=== PATIENT | male | born 1955 | race Caucasian/White ===

== ENCOUNTER 2020-03-21 12:06 | Outpatient (CLI) | payer OTHER ==
[2020-03-21 15:01] LABS: BASOPHILS # (AUTO) 0.1 10^3/uL (0.0-0.1); BASOPHILS % (AUTO) 0.9 %; EOSINOPHILS # (AUTO) 0.1 10^3/uL (0.0-0.7); EOSINOPHILS % (AUTO) 0.9 %; HGB - HEMOGLOBIN 15.1 g/dL (14.0-18.0); LYMPHOCYTES # (AUTO) 1.6 10^3/uL (1.5-3.5); LYMPHOCYTES % (AUTO) 25.1 %; MEAN CORPUSCULAR HEMOGLOBIN 30.3 pg (27.0-31.0); MEAN CORPUSCULAR HGB CONC 33.2 g/dL (32.0-36.0); MEAN CORPUSCULAR VOLUME 91.2 fL (80.0-94.0); MEAN PLATELET VOLUME 10.7 fL (7.4-11.4); MONOCYTES # (AUTO) 0.5 10^3/uL (0.0-1.0); MONOCYTES % (AUTO) 7.5 %; NEUTROPHILS # (AUTO) 4.2 10^3/uL (1.5-6.6); NEUTROPHILS % (AUTO) 65.3 %; PLT - PLATELET COUNT 189 10^3/uL (130-450); RED BLOOD COUNT 4.99 10^6/uL (4.70-6.10); RED CELL DISTRIBUTION WIDTH 13.5 % (12.0-15.0); WHITE BLOOD COUNT 6.4 x10^3/uL (4.8-10.8)
[2020-03-21 15:18] LABS: ALBUMIN 4.2 g/dL (3.2-5.5); ALBUMIN/GLOBULIN RATIO 1.5 (1.0-2.2); ALKALINE PHOSPHATASE 61 IU/L (42-121); ALT ALANINE AMINOTRANSFERASE 22 IU/L (10-60); AST ASPARTATE AMINOTRANSFERASE 23 IU/L (10-42); BILIRUBIN,TOTAL 1.3 mg/dL (0.2-1.0); BUN - BLOOD UREA NITROGEN 16 mg/dL (6-20); CARBON DIOXIDE - CO2 29 mmol/L (21-32); CHLORIDE 106 mmol/L (101-111); CHOL/HDL RATIO 3.9 (<5.0); CHOLESTEROL 174 mg/dL; GLUCOSE 98 mg/dL (70-100); HDL CHOLESTEROL 45 mg/dL; LDL CHOLESTEROL,CALCULATED 100 mg/dL; LDL/HDL RATIO 2.2 (<3.6); SODIUM 140 mmol/L (135-145); VLDL CHOLESTEROL 29 mg/dL
== END 2020-03-21 12:07 | disposition home or self-care (01) ==
LOC: LAB.S 12:06
PROVIDERS: ATTEND Registered Nurse
DX: Z12.5 Encounter for screening for malignant neoplasm of prostate (principal); Z13.228 Encounter for screening for other metabolic disorders; Z13.0 Encounter for screening for diseases of the blood and blood-forming organs and certain disorders involving the immune mechanism; Z13.29 Encounter for screening for other suspected endocrine disorder
CPT/HCPCS: 36415; 80053; 80061; 83721; 84153; 84443; 85025

== ENCOUNTER 2020-05-17 10:27 | Outpatient (CLI) | payer MEDICARE, OTHER ==
--- NOTE | 2020-05-17 12:27 | XRAY Report ---
PROCEDURE: Lumbar Spine 2 View INDICATIONS: LOW BACK PAIN TECHNIQUE: 2 views of the lumbar spine were acquired. COMPARISON: None. FINDINGS: Bones: 5 [id number] vertebrae are present. There is normal bony alignment. No vertebral body compression fractures. No suspicious bony lesions. Mild multilevel degenerative disc space loss. Pr ominent facet arthropathy involving L4-L5 and L5-S1. Soft tissues: Overlying bowel gas pattern is normal. No suspicious soft tissue calcifications. IMPRESSION: Prominent lower lumbar facet arthropathy. No evidence acute bony abnormality of the lumb ar spine. Reviewed by: Brandon Taylor MD on 05/17/2020 12:26 PM PDT Approved by: Brandon Taylor MD on 05/17/2020 12:26 PM PDT Station ID: [id number]
--- NOTE | 2020-05-17 12:28 | XRAY Report ---
PROCEDURE: Hip w/Pelvis 2-3V LT INDICATIONS: LOW BACK PAIN TECHNIQUE: AP pelvis with lateral view(s) of the left hip(s). COMPARISON: None. FINDINGS: Bones: No fractures or dislocations. Pelvic ring appears intact. No suspicious bony lesions. Adva nced degenerative arthritis of the left hip with large osteophytes and joint space obliteration. Mode rate to severe degenerative arthritis of the right hip. Soft tissues: The visualized bowel gas pattern is normal. No suspicious soft tissue calcifications. IMPRESSION: 1. Advanced degenerative arthritis of the left hip. 2. Moderate to severe degenerative arthritis of the right hip. Reviewed by: Brandon Taylor MD on 05/17/2020 12:27 PM PDT Approved by: Brandon Taylor MD on 05/17/2020 12:27 PM PDT Station ID: [id number]
== END 2020-05-17 10:28 | disposition home or self-care (01) ==
LOC: DI.S 10:27
PROVIDERS: ATTEND Orthopaedic Surgery
DX: M47.816 Spondylosis without myelopathy or radiculopathy, lumbar region (principal); M16.0 Bilateral primary osteoarthritis of hip
CPT/HCPCS: 72100

== ENCOUNTER 2020-09-11 12:07 | Outpatient (CLI) | payer MEDICARE, OTHER ==
[2020-09-11 15:06] LABS: BUN - BLOOD UREA NITROGEN 15 mg/dL (6-20); CALCIUM 9.2 mg/dL (8.5-10.3); CARBON DIOXIDE - CO2 27 mmol/L (21-32); CHLORIDE 105 mmol/L (101-111); CHOL/HDL RATIO 4.2 (<5.0); CHOLESTEROL 229 mg/dL; GLUCOSE 98 mg/dL (70-100); HDL CHOLESTEROL 54 mg/dL; LDL CHOLESTEROL,CALCULATED 153 mg/dL; LDL/HDL RATIO 2.8 (<3.6); SODIUM 140 mmol/L (135-145); VLDL CHOLESTEROL 22 mg/dL
== END 2020-09-11 12:08 | disposition home or self-care (01) ==
LOC: LAB.S 12:07
PROVIDERS: ATTEND Registered Nurse
DX: E78.5 Hyperlipidemia, unspecified (principal); Z79.899 Other long term (current) drug therapy
CPT/HCPCS: 36415; 80048; 80061; 83721

== ENCOUNTER 2020-09-23 10:40 | Outpatient (CLI) | payer MEDICARE, OTHER ==
[2020-09-23 20:40] LABS: HEMOGLOBIN A1c% 5.5 % (4.27-6.07)
== END 2020-09-23 10:41 | disposition home or self-care (01) ==
LOC: LAB.S 10:40
PROVIDERS: ATTEND Registered Nurse
DX: R73.9 Hyperglycemia, unspecified (principal)
CPT/HCPCS: 36415; 83036

== ENCOUNTER 2021-03-25 08:42 | Emergency (ER) | payer MEDICARE, OTHER ==
--- NOTE | 2021-03-25 10:11 | XRAY Report ---
PROCEDURE: Ribs w/PA Chest RT INDICATIONS: fall from horse, R ribs hurting TECHNIQUE: 2 views of the right ribs were acquired, along with a single view chest. COMPARISON: None. FINDINGS: Surgical changes and devices: None. Bones and chest wall: No dislocations. There is a vertically oriented fracture with slight offset o f the cortex seen just below the surface marker indicating area of maximal tenderness on the frontal view chest. No suspicious bony lesions. Overlying soft tissues appear unremarkable. Lungs and pleura: No pleural effusions or pneumothorax. Lungs appear clear. Mediastinum: Mediastinal contours appear normal. Heart size is normal. IMPRESSION: No pneumothorax found. Vertically oriented rib fracture involving the right lateral ninth rib. No pul monary contusion seen. Reviewed by: Dickson Kendall MD on 03/25/2021 10:10 AM PDT Approved by: Dickson Kendall MD on 03/25/2021 10:10 AM PDT Station ID: [id number]
--- NOTE | 2021-03-25 10:13 | XRAY Report ---
PROCEDURE: Knee 3 View LT INDICATIONS: fall from horse, pain, swelling TECHNIQUE: 3 views of the left knee(s) were acquired. COMPARISON: None. FINDINGS: Bones: No fractures or dislocations. No suspicious bony lesions. Soft tissues: No joint effusion. No suspicious soft tissue calcifications. IMPRESSION: No trauma found. Reviewed by: Dickson Kendall MD on 03/25/2021 10:11 AM PDT Approved by: Dickson Kendall MD on 03/25/2021 10:11 AM PDT Station ID: [id number]
--- NOTE | 2021-03-25 10:14 | XRAY Report ---
PROCEDURE: Lumbar Spine 2 View INDICATIONS: fall from horse, pain low spine TECHNIQUE: 2 views of the lumbar spine were acquired. COMPARISON: None. FINDINGS: Bones: 5 [id number] vertebrae are present. There is normal bony alignment. No vertebral body compression fractures. No suspicious bony lesions. Soft tissues: Overlying bowel gas pattern is normal. No suspicious soft tissue calcifications. IMPRESSION: Degenerative disc disease is mild along the thoracolumbar junction and lumbosacral spine . No fracture or traumatic subluxation is found. Moderate facet osteoarthritis is seen at L4-5 and L5 -S1. Slight convex leftward scoliosis centered at L4. Reviewed by: Dickson Kendall MD on 03/25/2021 10:12 AM PDT Approved by: Dickson Kendall MD on 03/25/2021 10:12 AM PDT Station ID: [id number]
[2021-03-25] MEDS ORDERED: HYDROcod/ACETAM 5/325 MG TABLET PO STA (11:37)
[2021-03-25] MEDS ORDERED: KETOROLAC 60 MG/2 ML VIAL IM STA (11:37)
--- NOTE | 2021-03-25 11:40 | ED Physician Documentation ---
History of Present Illness - Stated complaint Stated Complaint: BODY ACHES - Chief complaint Chief Complaint: Trauma Ch/Bk - History obtained from History obtained from: Patient, Family - Additonal information Additional information: Patient comes emergency department chief complaint of back pain and left knee pain after falling off her horse 3 days ago. Patient states it was his horse and that he was bucked off onto sand. He states he twisted his he fell and landed on his right back. Patient denies any loss of consciousness so he thinks he might of bumped his head at the time. No neck pain. No abdominal pain. No blood in stool or urine. No difficulty breathing other than it hurts to take a deep breath. No other complaints at this time. Review of Systems Ten Systems: 10 systems reviewed and negative Constitutional: reports: Reviewed and negative Eyes: reports: Reviewed and negative Ears: reports: Reviewed and negative Nose: reports: Reviewed and negative Throat: reports: Reviewed and negative Cardiac: reports: Reviewed and negative Respiratory: reports: Reviewed and negative GI: reports: Reviewed and negative : reports: Reviewed and negative Skin: reports: Reviewed and negative Musculoskeletal: reports: Back pain, Joint pain Neurologic: reports: Reviewed and negative Psychiatric: reports: Reviewed and negative Endocrine: reports: Reviewed and negative Immunocompromised: reports: Reviewed and negative PD PAST MEDICAL HISTORY - Past Medical History Past Medical History: Yes Musculoskeletal: Osteoarthritis - Past Surgical History Past Surgical History: No - Present Medications Home Medications: Ambulatory Orders Medication Instructions Recorded Confirmed Cetirizine HCl [Zyrtec] 10 mg PO DAILY 03/25/21 03/25/21 Fluticasone [Flonase] 1 sprays EMILIANO DAILY 03/25/21 03/25/21 HYDROcod/ACETAM 5/325 [[place] 5/325] 1 - 2 tablet PO Q6H PRN #20 tablet 03/25/21 Meloxicam [Mobic] 1 tablet PO DAILY 03/25/21 03/25/21 - Allergies Allergies/Adverse Reactions: Allergies Allergy/AdvReac Type Severity Reaction Status Date / Time No Known Drug Allergies Allergy Verified 03/25/21 08:56 - Social History Does the pt smoke?: No Smoking Status: Never smoker Does the pt drink ETOH?: Yes Does the pt have substance abuse?: No - Immunizations Immunizations are current?: Yes PD ED PE NORMAL - Vitals Vital signs reviewed: Yes - General General: Alert and oriented X 3, No acute distress, Well developed/nourished - HEENT HEENT: Atraumatic, PERRL, EOMI, Moist mucous membranes - Neck Neck: Supple, no meningeal sign - Cardiac Cardiac: RRR, No murmur - Respiratory Respiratory: No respiratory distress, Clear bilaterally - Abdomen Abdomen: Soft, Non tender, Non distended - Back Back: No CVA TTP, No spinal TTP, Other (Tenderness palpation over lumbar area just to right of spine. Extends up to posterior right lower rib cage as well as into posterior lateral right ribs at approximately the 7 through 10 level. No palpable deformity no crepitus.) - Derm Derm: Warm and dry, No rash, Other (Large contusion noted over right buttock and flank, as well as posterior left knee. Tender to palpation in same area.) - Extremities Extremities: No deformity, No edema, No calf tenderness / cord - Neuro Neuro: Alert and oriented X 3, progress man 2-12 intact, No motor deficit, No sensory deficit, Normal speech - Psych Psych: Normal mood, Normal affect Results - Vitals Vitals: Vital Signs - 24 hr 03/25/21 08:57 Temperature 36.5 C Heart Rate 56 L Respiratory 18 Rate Blood Pressure 158/82 H O2 Saturation 99 Oxygen O2 Source Room air - Rads (name of study) lumbar XR Radiology: Final report received, EMP read indepedently, See rad report (nad, DJD, osteoarthritis) ribs/chest XR Radiology: Final report received, EMP read indepedently, See rad report (R single nondisplaced rib fx, no pneumo) L knee XR Radiology: Final report received, EMP read indepedently, See rad report (nad) PD MEDICAL DECISION MAKING - ED course Complexity details: reviewed results, re-evaluated patient, considered differential, d/w patient ED course: Patient was treated symptomatically in the emergency department. X-ray showed a right rib fracture without pneumothorax or displacement. Lumbar and left knee x-rays were negative. Patient was instructed regarding symptomatic management at home, and we have discussed the usual indications for return. Departure - Departure Disposition: 01 Home, Self Care Clinical Impression: Multiple contusions Rib fracture Qualifiers: Encounter type: initial encounter Rib fracture type: single rib Fracture type: closed Laterality: right Qualified Code(s): S22.31XA - Fracture of one rib, right side, initial encounter for closed fracture Knee strain Qualifiers: Encounter type: initial encounter Laterality: left Qualified Code(s): S86.912A - Strain of unspecified muscle(s) and tendon(s) at lower leg level, left leg, initial encounter Lumbar strain Qualifiers: Encounter type: initial encounter Qualified Code(s): S39.012A - Strain of muscle, fascia and tendon of lower back, initial encounter Fall from horse Qualifiers: Encounter type: initial encounter Qualified Code(s): V80.010A - Animal-rider injured by fall from or being thrown from horse in noncollision accident, initial encounter Condition: Stable Instructions: ED Low Back Pain Injury, ED Fx Rib, ED Contusion Lower Ext Prescriptions: HYDROcod/ACETAM 5/325 [[place] 5/325] 1 - 2 tablet PO Q6H PRN #20 tablet PRN Reason: Pain Comments: The x-rays of your low spine and your knee look good. Your rib X-ray series showed a single fracture of one of the right ribs. No evidence of injury to your lung was seen. Please take the pain medication as needed. Focus on taking several deep breaths every hour to keep your lungs well aerated and prevent pneumonia. You may follow-up with your doctor as needed.
[2021-03-25 11:56] VITALS: BP 144/92
== END 2021-03-25 12:15 | disposition home or self-care (01) ==
LOC: ED 08:42
DX: S22.31XA Fracture of one rib, right side, initial encounter for closed fracture (principal); S86.912A Strain of unspecified muscle(s) and tendon(s) at lower leg level, left leg, initial encounter; S39.012A Strain of muscle, fascia and tendon of lower back, initial encounter; S80.02XA Contusion of left knee, initial encounter; S30.0XXA Contusion of lower back and pelvis, initial encounter; V80.010A Animal-rider injured by fall from or being thrown from horse in noncollision accident, initial encounter; Y93.52 Activity, horseback riding; M51.37 Other intervertebral disc degeneration, lumbosacral region; M47.817 Spondylosis without myelopathy or radiculopathy, lumbosacral region
CPT/HCPCS: 71101; 72100; 73562; 96372; 99283; 99284; A9270

== ENCOUNTER 2021-06-30 12:22 | Outpatient (CLI) | payer MEDICARE, OTHER ==
--- NOTE | 2021-06-30 17:13 | XRAY Report ---
PROCEDURE: Hip w/Pelvis 1V LT INDICATIONS: L HIP PX TECHNIQUE: AP pelvis with lateral view(s) of the left hip(s). COMPARISON: None. FINDINGS: Bones: No fractures or dislocations. Pelvic ring appears intact. No suspicious bony lesions. Prog ressive end-stage degenerative change of the left hip. Right hip degenerative change. Soft tissues: The visualized bowel gas pattern is normal. No suspicious soft tissue calcifications. IMPRESSION: Progressive end-stage degenerative change of the left hip. Reviewed by: Brandon Taylor MD on 06/30/2021 5:12 PM PDT Approved by: Brandon Taylor MD on 06/30/2021 5:12 PM PDT Station ID: [id number]
== END 2021-06-30 12:23 ==
LOC: DI.N 12:22
PROVIDERS: ATTEND Orthopaedic Surgery
DX: M25.552 Pain in left hip (principal); M16.12 Unilateral primary osteoarthritis, left hip

== ENCOUNTER 2021-08-14 11:04 | Outpatient (CLI) | payer MEDICARE, OTHER ==
[2021-08-14 15:23] LABS: BASOPHILS # (AUTO) 0.1 10^3/uL (0.0-0.1); BASOPHILS % (AUTO) 1.1 %; EOSINOPHILS # (AUTO) 0.1 10^3/uL (0.0-0.7); EOSINOPHILS % (AUTO) 1.3 %; HCT - HEMATOCRIT 46.7 % (42.0-52.0); HGB - HEMOGLOBIN 15.1 g/dL (14.0-18.0); LYMPHOCYTES # (AUTO) 1.1 10^3/uL (1.5-3.5); LYMPHOCYTES % (AUTO) 19.3 %; MEAN CORPUSCULAR HEMOGLOBIN 29.8 pg (27.0-31.0); MEAN CORPUSCULAR HGB CONC 32.3 g/dL (32.0-36.0); MEAN CORPUSCULAR VOLUME 92.1 fL (80.0-94.0); MEAN PLATELET VOLUME 11.3 fL (7.4-11.4); MONOCYTES # (AUTO) 0.6 10^3/uL (0.0-1.0); MONOCYTES % (AUTO) 9.9 %; NEUTROPHILS # (AUTO) 3.8 10^3/uL (1.5-6.6); NEUTROPHILS % (AUTO) 68.2 %; PLT - PLATELET COUNT 200 10^3/uL (130-450); RED BLOOD COUNT 5.07 10^6/uL (4.70-6.10); RED CELL DISTRIBUTION WIDTH 13.2 % (12.0-15.0); WHITE BLOOD COUNT 5.5 x10^3/uL (4.8-10.8)
[2021-08-14 15:52] LABS: ALBUMIN 4.2 g/dL (3.2-5.5); ALBUMIN/GLOBULIN RATIO 1.4 (1.0-2.2); ALKALINE PHOSPHATASE 66 IU/L (42-121); ALT ALANINE AMINOTRANSFERASE 22 IU/L (10-60); AST ASPARTATE AMINOTRANSFERASE 21 IU/L (10-42); BILIRUBIN,TOTAL 1.1 mg/dL (0.2-1.0); BUN - BLOOD UREA NITROGEN 19 mg/dL (6-20); CARBON DIOXIDE - CO2 29 mmol/L (21-32); CHLORIDE 103 mmol/L (101-111); CHOL/HDL RATIO 3.9 (<5.0); CHOLESTEROL 221 mg/dL; CREATININE,URINE 280.4 mg/dL; GFR - MDRD 75 (>89); GLUCOSE 97 mg/dL (70-100); HDL CHOLESTEROL 56 mg/dL; LDL CHOLESTEROL,CALCULATED 148 mg/dL; LDL/HDL RATIO 2.6 (<3.6); MICROALBUM/CREATININE RATIO,UR 3.9 ug/mg (<30.0); MICROALBUMIN,URINE 1.1 mg/dL (0-300.0); POTASSIUM 4.7 mmol/L (3.5-5.0); SODIUM 139 mmol/L (135-145); TOTAL PROTEIN 7.1 g/dL (6.7-8.2); TRIGLYCERIDES 86 mg/dL; VLDL CHOLESTEROL 17 mg/dL
[2021-08-14 15:57] LABS: THYROID STIMULATING HORMONE 2.26 uIU/mL (0.34-5.60)
[2021-08-14 16:04] LABS: ESTIMATED AVERAGE GLUCOSE 114 mg/dL (70-100); HEMOGLOBIN A1c% 5.6 % (4.27-6.07)
== END 2021-08-14 11:05 | disposition home or self-care (01) ==
LOC: LAB.S 11:04
PROVIDERS: ATTEND Registered Nurse
DX: Z01.812 Encounter for preprocedural laboratory examination (principal); R73.9 Hyperglycemia, unspecified; E78.5 Hyperlipidemia, unspecified; Z13.228 Encounter for screening for other metabolic disorders; Z13.29 Encounter for screening for other suspected endocrine disorder; Z13.0 Encounter for screening for diseases of the blood and blood-forming organs and certain disorders involving the immune mechanism
CPT/HCPCS: 36415; 80053; 80061; 82043; 82570; 83036; 83721; 84443; 85025

== ENCOUNTER 2021-09-23 06:07 | Day surgery (SDC) | payer MEDICARE, OTHER ==
[~2021-09-23 06:07] MED LIST: LACTATED RINGERS 1,000 ML IV ONE
[2021-09-23] MEDS ORDERED: CELECOXIB 100 MG CAPSULE PO ONE (07:21)
[2021-09-23] MEDS ORDERED: DEXAMETHASONE 10 MG/ML VIAL ONE (07:21)
[2021-09-23] MEDS ORDERED: ACETAMINOPHEN 500 MG TABLET PO ONE (07:21)
[2021-09-23] MEDS ORDERED: BUPIVACAINE 0.5% PF 10 ML VIAL ONE ×4 (07:28→07:33)
[2021-09-23] MEDS ORDERED: fentaNYL 100 MCG/2 ML VIAL ONE (07:28)
[2021-09-23] MEDS ORDERED: MIDAZOLAM 2 MG/2 ML VIAL ONE (07:28)
[2021-09-23] MEDS ORDERED: CEFAZOLIN SODIUM IN 0.9 % NACL 2 GM/100 ML BAG IV ONE (07:29)
[2021-09-23] MEDS ORDERED: PROPOFOL 500 MG/50 ML 500 MG/50 ML VIAL ONE (07:31)
[2021-09-23] MEDS ORDERED: SODIUM CHLORIDE FLUSH 0.9% 10 ML SYRINGE IVP PRN (07:33)
[2021-09-23] MEDS ORDERED: MORPHINE 2 MG/ML CARPUJECT IVP PRN ×2 (07:33→09:47)
[2021-09-23] MEDS ORDERED: VANCOMYCIN 1 GM VIAL ONE (07:33)
[2021-09-23] MEDS ORDERED: DOCUSATE SODIUM 100 MG CAPSULE PO PRN (07:33)
[2021-09-23] MEDS ORDERED: ONDANSETRON 4 MG/2 ML VIAL IVP PRN ×2 (07:33→09:47)
[2021-09-23] MEDS ORDERED: oxyCODONE 5 MG TABLET PO PRN (07:33)
[2021-09-23] MEDS ORDERED: LACTATED RINGERS 1,000 ML IV ONE (07:40)
--- NOTE | 2021-09-23 07:56 | ANESTHESIA ---
Pre-Anesthesia VS, & Labs - Diagnosis Left hip osteoarthritis - Procedure Left hip arthroplasty Vital Signs: Temp Pulse Resp BP Pulse Ox 36.7 C 75 16 137/89 H 97 09/23/21 06:46 09/23/21 06:46 09/23/21 06:46 09/23/21 06:46 09/23/21 06:46 Height: 5 ft 10 in Weight (kg): 101.5 kg Body Mass Index: 32.1 BMI Classification: Obese - NPO >8 hours - Lab Results Current Lab Results: Laboratory Tests 09/23/21 07:30: POC Whole Bld Glucose 108 H Lab results reviewed: Yes Home Medications and Allergies Active Medications Acetaminophen (Acetaminophen 500 Mg Tablet) 1,000 mg PO Q6HR [facility] Alcohol (Ethyl Alcohol 62% Swab Ampule) 1 amp EMILIANO BID [facility] Aspirin (Aspirin Ec 81 Mg Tablet) 81 mg PO BID DAVINA Celecoxib (Celecoxib 100 Mg Capsule) 200 mg PO BID DAVINA Docusate Sodium (Docusate Sodium 100 Mg Capsule) 100 mg PO BID PRN PRN Reason: Constipation Cefazolin Sodium 2 gm/ Sodium (Chloride) 100 mls @ 200 mls/hr IV Q8HR [facility] Stop: 09/23/21 22:29 Potassium Chloride/Sodium Chloride (Normal Saline 0.9% W/20 Meq Kcl) 1,000 mls @ 100 mls/hr IV .Q10H [facility] Morphine Sulfate (Morphine 2 Mg/Ml Carpuject) 2 mg IVP Q2HR PRN PRN Reason: PAIN Ondansetron HCl (Ondansetron 4 Mg/2 Ml Vial) 4 mg IVP Q6HR PRN PRN Reason: Nausea / Vomiting Oxycodone HCl (Oxycodone 5 Mg Tablet) 5 mg PO Q6HR PRN PRN Reason: PAIN Sodium Chloride (Sodium Chloride Flush 0.9% 10 Ml Syringe) 10 ml IVP PRN PRN PRN Reason: NEEDED PER PROVIDER ORDERS Sodium Chloride (Sodium Chloride Flush 0.9% 10 Ml Syringe) 10 ml IVP 0100,0900,1700 [facility] Meloxicam [Mobic] 15 tablet PO DAILY 03/25/21 Allergies/Adverse Reactions: Allergies Allergy/AdvReac Type Severity Reaction Status Date / Time No Known Drug Allergies Allergy Verified 03/25/21 08:56 Anes History & Medical History - Anesthetic History Anesthesia Complications: reports: No previous complications - Medical History Cardiovascular: reports: None, Murmur Pulmonary: reports: None Gastrointestinal: reports: None Urinary: reports: None Neuro: reports: None Musculoskeletal: reports: Osteoarthritis Endocrine/Autoimmune: reports: None Blood Disorders: reports: None Skin: reports: Rosacea Smoking Status: Never smoker Psychosocial: reports: No issues indicated History of Cancer?: No - Surgical History General: reports: Colonoscopy Orthopedic: reports: Other Exam General: Alert, Oriented x3, Cooperative, No acute distress Dental: WNL Mouth Openin Fingerbreadth Neck Mobility: Normal Mallampati classification: II Thyromental Distance: 4-6 cm Mental/Cognitive Status: Alert/Oriented X3, Normal for patient Plan Anesthesia Type: Spinal, Fascia Iliaca Block (Possible left) Consent for Procedure(s) Verified and Reviewed: Yes Code Status: Attempt Resuscitation ASA classification: 2-Mild systemic disease Is this case an emergency?: No
[2021-09-23] MEDS ORDERED: TRANEXAMIC ACID 1,000 MG/10 ML VIAL ONE ×2 (08:29→12:30)
[2021-09-23] MEDS ORDERED: PHENYLEPHRINE 10 MG/ML VIAL ONE (08:29)
[2021-09-23] MEDS ORDERED: VANCOMYCIN 1 GM VIAL MC ONE (08:49)
[2021-09-23] MEDS ORDERED: BUPIVACAINE 0.5% PF 30 ML VIAL INFIL ONE ×2 (08:50)
[2021-09-23] MEDS ORDERED: CELECOXIB 100 MG CAPSULE PO SCH (09:00)
[2021-09-23] MEDS ORDERED: ASPIRIN EC 81 MG TABLET PO SCH (09:00)
[2021-09-23] MEDS ORDERED: ethyl alcohoL 62% SWAB AMPULE NAS SCH (09:00)
[2021-09-23] MEDS ORDERED: PROPOFOL 200 MG/20 ML VIAL IVP ONE (09:21)
[2021-09-23] MEDS ORDERED: HYDROmorphone 0.5 MG/0.5 ML SYRINGE IVP PRN (09:47)
[2021-09-23] MEDS ORDERED: ATROPINE ABBOJECT 1 MG/10 ML SYRINGE IVP PRN (09:47)
[2021-09-23] MEDS ORDERED: fentaNYL 100 MCG/2 ML VIAL IVP PRN (09:47)
[2021-09-23] MEDS ORDERED: ePHEDrine 50 MG/ML VIAL IVP PRN (09:47)
[2021-09-23] MEDS ORDERED: METOCLOPRAMIDE 10 MG/2 ML VIAL IVP PRN (09:47)
[2021-09-23] MEDS ORDERED: NALOXONE 0.4 MG/ML VIAL IVP PRN (09:47)
[2021-09-23] MEDS ORDERED: LACTATED RINGERS 1,000 ML IV SCH (10:00)
[2021-09-23] MEDS ORDERED: ROPIVACAINE 0.5% PF 20 ML AMPULE ONE (10:15)
[2021-09-23] MEDS ORDERED: SODIUM CHLORIDE 0.9% 10 ML VIAL IVP ONE (10:15)
--- NOTE | 2021-09-23 10:43 | OPERATIVE REPORT ---
Operative Report - General Procedure Date: 09/23/21 Planned Procedure: left total hip arthroplasty Pre-Op Diagnosis: Osteoarthritis left hip Procedure Performed: left total hip arthroplastyUsing Bryant nephew total hip: Size 9, high offset, an thology press-fit femoral component, 54 mm R3 acetabular cup with neutral polyethylene liner, 36 mm, +4 Oxinium femoral head Post Op Diagnosis: Same as preoperative diagnosis - Procedure Note Primary Surgeon: Lius Mcintosh MD Secondary Surgeon: Mau TRIVEDI Anesthesia Provider: Todd Jacobs CRNA Anesthesia Technique: Regional block, Spinal Estimated Blood Loss (mL): 150 Indications: This is a 66-year-old with marked and progressive pain to left hip despite nonoperative treatment. His pain has progressed to the point that every step is associated with pain and his activities have been limited to indoors at home with walking aid. He had painful and limited motion to left hip. His x-rays showed complete loss of joint space to the left hip. Findings: He had complete loss of articular cartilage to both femoral and acetabular sides of the left hip joint. There was deformity to the femoral head with osteophytes about the head and to lesser degree the acetabulum. Complications: None - Other Other Information/Narrative: After satisfactory spinal anesthesia had been achieved, the patient was placed in a lateral decubitus position with the left hip facing superiorly. He was secured in the lateral decubitus position using a pegboard with 2 post securing the torso and 2 posts securing the pelvis. The left hip and left lower extremity were prepped and draped in a sterile manner in the usual fashion. A timeout procedure was performed by the entire operating room team and all were in agreement. A longitudinal incision was made about the lateral right hip beginning at the vastus lateralis ridge of the proximal femur and extending it proximally approximately 3 fingerbreadths above the trochanter. The subcutaneous tissue and fascia diogenes were split in line with the incision. The anterior one third of the gluteus medius was incised at the tendinous junction with the trochanter. The gluteus medius was retracted medially. The hip capsule was exposed and was split in a T-shaped fashion. Part of the anterior hip capsule was excised. The femoral head was dislocated with flexion, adduc tion and external rotation. An osteotomy was done to the femoral neck using a osteotomy guide. Retractors were placed behind the femoral neck to protect the soft tissues from the oscillating saw. The proximal femur was retracted. 2 acetabular retractors were placed one anteriorly directly against bone to reduce any soft tissue impingement to femoral nerve. The second retractor was placed more posteriorly directly against bone and preventing any impingement against sciatic nerve. The acetabulum was prepared with a large curette. Medialization of the acetabulum was performed with a small acetabular reamer and then widening was done up to a 54 mm reamer.The patient had good quality bone and in line to line fit provided excellent fit with the trial acetabular cup. the final reamers were placed in approximately 20 degrees anteversion and 40 degrees of abduction. A trial acetabular component was inserted, 53 mm and this fit well. A permanent 54 mm R3 acetabular 3-hole component was then impacted in 40 degrees of abduction and approximately 20 degrees of anteversion. This had good fixation to push pull and rotation. The stability of the acetabular cup was very good. A trial acetabular liner was inserted into the cup. The femoral canal was opened with a box osteotome, lateral opening reamer, starting reamer and then a short broach. Broaching was carried out to a #9. Calcar reaming was performed. Good fit and stability to the #9 stem was achieved. Trial reduction was performed. Hip motion was very good and the hip was stable to dislocation maneuvers. The trial components were removed. A permanent acetabular liner was impacted into the acetabular cup. The #9 Anthology femoral stem, high offset was impacted and fully seated. The femoral head was impacted on the femoral trunnion. There was good stability to push pull and rotation. A 36 mm +4 head was impacted on the trunnion. The hip was reduced, had good leg length tension and good stability with dislocation maneuvers. 3-minute lavage with dilute Betadine was performed. The hip abductors were repaired at the myotendinous and tendinous junction with #1 stratofix and arthrex suture anchor to trochanter.. The fascia diogenes was closed with #1 stratofix. The subcutaneous tissue was closed with 2-0 monocryl. The skin was closed with a 3-0 Monocryl subcuticular closure and Dermabond. He tolerated the procedure well. A physician public health assistant was utilized during the procedure to provide retraction and protection of neurovascular structures as well as to facilitate dislocation and reduction of the hip joint.
--- NOTE | 2021-09-23 11:57 | XRAY Report ---
PROCEDURE: Pelvis 1 View INDICATIONS: LEFT TOTAL HIP POSTOP TECHNIQUE: 1 view(s) of the pelvis acquired. COMPARISON: 06/30/2021. FINDINGS: Bones: Patient is status post left total hip arthroplasty with anatomic left hip alignment. No fractu re or dislocation. No suspicious bony lesions. Soft tissues: Expected postsurgical changes are noted in left lateral upper thigh soft tissue. IMPRESSION: Postoperative changes from left total hip arthroplasty with anatomic left hip alignment. Reviewed by: Brant Gale MD on 09/23/2021 11:55 AM PST Approved by: Brant Gale MD on 09/23/2021 11:55 AM PST Station ID: [id number]
[2021-09-23] MEDS ORDERED: ACETAMINOPHEN 500 MG TABLET PO SCH (12:00)
--- NOTE | 2021-09-23 13:51 | ANESTHESIA POST OP EVALUATION ---
Anesthesia Post Eval - Post Anesthesia Eval Vitals: Last Vital Signs Temp 36 C L 09/23/21 13:25 Pulse 59 L 09/23/21 13:25 Resp 16 09/23/21 13:25 BP 140/76 H 09/23/21 13:25 Pulse Ox 96 09/23/21 13:25 CV Function Including HR & BP: Stable Pain Control: Satisfactory Nausea & Vomiting: Negative Mental Status: Baseline Respiratory Status: Airway Patent Hydration Status: Satisfactory Anesthesia Complications: None
[2021-09-23] MEDS: NS W/20 MEQ KCL 1,000 ML IV SCH ×2 (15:08→16:29)
[2021-09-23] MEDS: SODIUM CHLORIDE FLUSH 0.9% 10 ML SYRINGE IVP SCH ×2 (15:09→16:26)
[2021-09-23] MEDS: ceFAZolin 2 GM in SODIUM CHLORIDE 0.9% 100ML 100 ML IV SCH ×2 (15:10→16:26)
[2021-09-23 17:22] VITALS: BP 135/78
== END 2021-09-23 17:55 | disposition home or self-care (01) ==
LOC: SDS 06:07 → MS2 13:42 → SDS 17:55
PROVIDERS: ATTEND Orthopaedic Surgery
DX: M16.12 Unilateral primary osteoarthritis, left hip (principal); E66.9 Obesity, unspecified; Z68.33 Body mass index [BMI] 33.0-33.9, adult
CPT/HCPCS: 27130; 72170; 97116; 97162; 97165; A9270; C1713; C1776; J0690; J3370; J7120

== ENCOUNTER 2021-11-05 08:40 | Outpatient (CLI) | payer MEDICARE, OTHER ==
--- NOTE | 2021-11-05 12:56 | XRAY Report ---
PROCEDURE: Hip 2 View LT x-ray INDICATIONS: F/U TOTAL HIP ARTHROPLASTY TECHNIQUE: 3 views of the hip were acquired. COMPARISON: 06/22/2021 FINDINGS: Bones: Total left hip arthroplasty in good position. No evidence of hardware failure or loosening. Th ere is moderate right-sided joint space narrowing with subchondral sclerosis present as well. Degener ative changes noted lower lumbar spine. Pelvic ring intact. Soft tissues: No suspicious soft tissue calcifications or masses. IMPRESSION: Total left hip arthroplasty in good position. Moderate right hip osteoarthritis. Reviewed by: Pop Bill MD on 11/05/2021 11:55 AM [place] Approved by: Pop Bill MD on 11/05/2021 11:55 AM [facility] Station ID: [id number]
== END 2021-11-05 08:41 | disposition home or self-care (01) ==
LOC: DI.WOS 08:40
PROVIDERS: ATTEND Orthopaedic Surgery
DX: Z96.642 Presence of left artificial hip joint (principal); M16.11 Unilateral primary osteoarthritis, right hip

== ENCOUNTER 2022-08-05 07:14 | Outpatient (CLI) | payer MEDICARE, OTHER ==
[2022-08-05 14:42] LABS: BASOPHILS # (AUTO) 0.1 10^3/uL (0.0-0.1); BASOPHILS % (AUTO) 1.8 %; EOSINOPHILS # (AUTO) 0.1 10^3/uL (0.0-0.7); EOSINOPHILS % (AUTO) 2.6 %; HCT - HEMATOCRIT 48.8 % (42.0-52.0); HGB - HEMOGLOBIN 15.3 g/dL (14.0-18.0); LYMPHOCYTES # (AUTO) 1.7 10^3/uL (1.5-3.5); LYMPHOCYTES % (AUTO) 30.6 %; MEAN CORPUSCULAR HEMOGLOBIN 29.1 pg (27.0-31.0); MEAN CORPUSCULAR HGB CONC 31.4 g/dL (32.0-36.0); MEAN PLATELET VOLUME 11.2 fL (7.4-11.4); MONOCYTES # (AUTO) 0.5 10^3/uL (0.0-1.0); MONOCYTES % (AUTO) 9.2 %; NEUTROPHILS % (AUTO) 55.6 %; PLT - PLATELET COUNT 184 10^3/uL (130-450); RED BLOOD COUNT 5.25 10^6/uL (4.70-6.10); RED CELL DISTRIBUTION WIDTH 14.3 % (12.0-15.0); WHITE BLOOD COUNT 5.5 x10^3/uL (4.8-10.8)
[2022-08-05 15:14] LABS: ALBUMIN 4.1 g/dL (3.2-5.5); ALBUMIN/GLOBULIN RATIO 1.4 (1.0-2.2); ALKALINE PHOSPHATASE 49 IU/L (42-121); ALT ALANINE AMINOTRANSFERASE 28 IU/L (10-60); AST ASPARTATE AMINOTRANSFERASE 25 IU/L (10-42); BILIRUBIN,TOTAL 0.8 mg/dL (0.2-1.0); BUN - BLOOD UREA NITROGEN 18 mg/dL (6-20); CARBON DIOXIDE - CO2 30 mmol/L (21-32); CHLORIDE 106 mmol/L (101-111); CHOL/HDL RATIO 4.7 (<5.0); CHOLESTEROL 249 mg/dL; CREATININE 1.2 mg/dL (0.6-1.2); GFR - MDRD 60 (>89); GLUCOSE 103 mg/dL (70-100); HDL CHOLESTEROL 53 mg/dL; LDL CHOLESTEROL,CALCULATED 176 mg/dL; LDL/HDL RATIO 3.3 (<3.6); POTASSIUM 4.6 mmol/L (3.5-5.0); SODIUM 141 mmol/L (135-145); TRIGLYCERIDES 98 mg/dL; VLDL CHOLESTEROL 20 mg/dL
[2022-08-05 15:25] LABS: THYROID STIMULATING HORMONE 4.71 uIU/mL (0.34-5.60)
[2022-08-05 21:04] LABS: ESTIMATED AVERAGE GLUCOSE 126 mg/dL (70-100)
== END 2022-08-05 07:15 | disposition home or self-care (01) ==
LOC: LAB.S 07:14
PROVIDERS: ATTEND Registered Nurse
DX: E78.5 Hyperlipidemia, unspecified (principal); Z13.228 Encounter for screening for other metabolic disorders; Z13.220 Encounter for screening for lipoid disorders; R73.9 Hyperglycemia, unspecified; Z12.5 Encounter for screening for malignant neoplasm of prostate; Z13.29 Encounter for screening for other suspected endocrine disorder; Z13.0 Encounter for screening for diseases of the blood and blood-forming organs and certain disorders involving the immune mechanism
CPT/HCPCS: 36415; 80053; 80061; 83036; 84443; 85025; G0103; 83721; 84153

== ENCOUNTER 2022-09-06 13:00 | Outpatient (CLI) | payer MEDICARE, OTHER ==
--- NOTE | 2022-09-06 08:27 | XRAY Report ---
PROCEDURE: Hip 2 View LT INDICATIONS: LEFT TOTAL HIP TECHNIQUE: 2 views of the hip were acquired. COMPARISON: November 05, 2021 FINDINGS: Patient is status post left total hip prosthesis. Surgical hardware appears in good position without evidence for hardware complication. There is moderate osteoarthritic type degenerative change involving the right hip. No acute fracture or dislocation is seen. Soft tissues appear within normal limits. IMPRESSION: 1. Satisfactory appearance of left total hip prosthesis. 2. Moderate osteoarthritic type degenerative change right hip. 3. No evidence for acute osseous abnormality. Reviewed by: Martir Coppola MD on 09/06/2022 8:26 AM PST Approved by: Martir Coppola MD on 09/06/2022 8:26 AM PST Station ID: [id number]
== END 2022-09-06 23:59 | disposition home or self-care (01) ==
LOC: DI.WOS 13:00
PROVIDERS: ATTEND Orthopaedic Surgery
DX: Z47.1 Aftercare following joint replacement surgery (principal); Z96.642 Presence of left artificial hip joint; M16.12 Unilateral primary osteoarthritis, left hip

== ENCOUNTER 2023-09-06 08:45 | Outpatient (CLI) | payer MEDICARE, OTHER ==
--- NOTE | 2023-09-06 20:15 | XRAY Report ---
PROCEDURE: Hip 2 View LT INDICATIONS: LEFT TOTAL HIP TECHNIQUE: 2 view(s) of the hip were acquired. COMPARISON: None FINDINGS: Bones: Total left hip arthroplasty in good position. Moderate right hip joint space narrowing and sma ll marginal osteophytes Soft tissues: No suspicious soft tissue calcifications or masses. IMPRESSION: Moderate right hip osteoarthritis. Total left hip arthroplasty in good position Reviewed by: Pop Bill MD on 09/06/2023 7:14 PM [place] Approved by: Pop Bill MD on 09/06/2023 7:14 PM [facility] Station ID: [id number]
== END 2023-09-06 23:59 | disposition home or self-care (01) ==
LOC: DI.WOS 08:45
PROVIDERS: ATTEND Orthopaedic Surgery
DX: M16.11 Unilateral primary osteoarthritis, right hip (principal); Z96.642 Presence of left artificial hip joint